=== PATIENT | female | born 1980 ===

== ENCOUNTER 2016-06-16 08:32 | Emergency (ER) | payer SELFPAY ==
--- NOTE | 2016-06-28 16:50 | UC ---
Ramesh Hull Anna, scribed for Kaylie Méndez MD on 06/16/16 at 0906 . Dental HPI - HPI Summary HPI Summary: Patient is a 35 y/o male coming to [facility] presenting with intermittent right- sided dental pain that began one week ago. The tooth initially hurt for a day one week ago. The pain resolved, then came back three days ago. She noticed her cheek become swollen two days ago. The pain has not worsened since then but has not resolved. The pain radiates to her jaw and is exacerbated by palpation. She is not aware of any allergies. - History of Current Complaint Chief Complaint: UCDentalProblem Stated Complaint: DENTAL PAIN Hx Obtained From: Patient Hx Last Menstrual Period: 06/13/16 - Allergies/Home Medications Allergies/Adverse Reactions: Allergies Allergy/AdvReac Type Severity Reaction Status Date / Time No Known Allergies Allergy Verified 06/16/16 08:46 PMH/Surg Hx/FS Hx/Imm Hx Previously Healthy: Yes Cardiovascular History Of: Denies: Cardiac Disorders Respiratory History Of: Denies: COPD - Surgical History Surgical History: None - Family History Known Family History: Negative: Cardiac Disease, Diabetes - Social History Occupation: Employed Full-time Alcohol Use: Weekly Substance Use Type: Marijuana Smoking Status (MU): Never Smoked Tobacco Review of Systems Constitutional: Negative Skin: Negative Eyes: Negative ENT: Dental Pain Respiratory: Negative Cardiovascular: Negative Gastrointestinal: Negative Genitourinary: Negative Motor: Negative Neurovascular: Negative Musculoskeletal: Negative Neurological: Negative Psychological: Negative All Other Systems Reviewed And Are Negative: Yes Physical Exam Triage Information Reviewed: Yes Appearance: Well-Nourished Vital Signs: Initial Vital Signs Temp 98.6 F 06/16/16 08:41 Pulse 75 06/16/16 08:41 Resp 16 06/16/16 08:41 BP 135/76 06/16/16 08:41 Pulse Ox 100 06/16/16 08:41 Vital Signs Reviewed: Yes Eye Exam: Normal ENT Exam: Normal Dental Exam: Other - Tooth 1 is broken and caried to base of gum. Did not appreciate any purulence. No drainage. Neck exam: Normal Neck: Positive: Other: - No adenopathy appreciated. Respiratory Exam: Normal - no dyspnea, no tachypnea, normal respiratory rate Cardiovascular Exam: Normal - Heart rate regular, good general skin color, good capillary refill Abdominal Exam: Normal Abdomen Description: Positive: Nontender, No Organomegaly, Soft Bowel Sounds: Positive: Present Musculoskeletal Exam: Normal Musculoskeletal: Positive: Strength Intact Neurological Exam: Normal - Nonfocal, grossly intact Psychological Exam: Normal - Conversing easily and appropriately Skin Exam: Normal - No visible or reported rash Dental Complaint Course/Dx - Course Course Of Treatment: No new problems in CCC. Considered below differential diagnoses. ISTOP reference number [id number]. Symptoms c/w - Differential Dx/Diagnosis Provider Diagnoses: Dental pain and infection Discharge - Discharge Plan Condition: Stable Disposition: HOME Prescriptions: Amoxicillin/Clavulanate TAB* [Augmentin TAB 875*] 875 mg PO BID #20 tab Fluconazole 150 MG (NF) [Diflucan 150 mg (NF)] 150 mg PO DAILY #2 tab Patient Education Materials: Dental Abscess (ED), Toothache (ED) Referrals: No Primary Care Phys,NOPCP [Primary Care Provider] - Additional Instructions: Please follow up with a Dentist as soon as possible. Seek immediate medical attention for worse or new problems. Consider ibuprofen or naproxen (over the counter) as needed for pain / inflammation. The documentation as recorded by the Ramesh pavon Anna accurately reflects the service I personally performed and the decisions made by , Kaylie Méndez MD.
== END 2016-06-16 09:47 | disposition home or self-care (01) ==
LOC: UCEAST 08:32
DX: K04.7 Periapical abscess without sinus (principal); K08.89 Other specified disorders of teeth and supporting structures
CPT/HCPCS: 99202; G0463